=== PATIENT | male | born 1970 | race Caucasian/White ===

== ENCOUNTER 2017-12-05 12:34 | Emergency (ER) | payer BC, OTHER ==
[~2017-12-05] VITALS: Ht 190.5 cm; Wt 102.3 kg
[2017-12-05] MEDS ORDERED: ondansetron/PF 4mg/2ml inj IV ONE (13:10)
[2017-12-05] MEDS ORDERED: normal saline 1000ml 1,000 ML IV ONE (13:10)
[2017-12-05] MEDS ORDERED: LORazepam 2 mg/ml vial IV ONE (13:15)
[2017-12-05 13:29] VITALS: BP 155/107
[2017-12-05] MEDS ORDERED: meclizine 12.5mg tablet PO ONE (13:35)
[2017-12-05] MEDS ORDERED: MECL12.584 PO (14:41)
[2017-12-05] MEDS ORDERED: ONDA8TAB9 PO (14:41)
== END 2017-12-05 14:52 | disposition home or self-care (01) ==
LOC: ER 12:34
DX: H81.10 Benign paroxysmal vertigo, unspecified ear (principal); Z79.899 Other long term (current) drug therapy
CPT/HCPCS: 93005; 96361; 96374; 96375; 99284; J2060; J2405; J7030; J8597